=== PATIENT | female | born 1960 | race Caucasian/White ===

== ENCOUNTER 2025-02-28 15:08 | Emergency (ER) | payer OTHER, MEDICARE, MEDICAID ==
[~2025-02-28] VITALS: Ht 160 cm; Wt 127.0 kg
[2025-02-28] MEDS: KETOROLAC 30MG/ML VIAL IV ONE (16:12)
[2025-02-28] MEDS: HYDROCODONE/ACETAMINOPHEN 5/325MG TABLET PO ONE (16:13)
[2025-02-28] MEDS: PROPOFOL 200MG/20ML VIAL IV ONE (17:00)
[2025-02-28] MEDS: MORPHINE SULFATE 4 MG/ML INJ (FOR IV/IM USE) IV ONE ×2 (17:50→18:44)
[2025-02-28] MEDS: SODIUM CHLORIDE 0.9% 1,000 ML IV ONE (17:50)
[2025-02-28 17:54] VITALS: TEMP 37
[2025-02-28] MEDS: LIDOCAINE HCL 1% 20ML VIAL INFIL ONE (18:00)
[2025-02-28 19:09] VITALS: O2SAT 99
[2025-02-28] MEDS ORDERED: HYDROMORPHONE HCL/PF 2MG/ML INJ IV ONE (19:15)
[2025-02-28] MEDS ORDERED: IBUP-1455 MT (20:47)
[2025-02-28] MEDS ORDERED: HYDR-4001 MT (20:47)
[2025-02-28 22:08] VITALS: BP 154/36; PULSE 78; RESP 15; O2SAT 97
== END 2025-02-28 22:10 | disposition home or self-care (01) ==
LOC: ER 15:08
DX: S52.611A Displaced fracture of right ulna styloid process, initial encounter for closed fracture (principal); S52.591A Other fractures of lower end of right radius, initial encounter for closed fracture; V43.62XA Car passenger injured in collision with other type car in traffic accident, initial encounter; Y93.89 Activity, other specified; Y92.410 Unspecified street and highway as the place of occurrence of the external cause; Y99.8 Other external cause status
CPT/HCPCS: 25605; 71045; 73080; 73110; 73130; 96361; 96374; 96375; 96376; 99152; 99285; J1885; J2003; J2704; J1171; J2270; J7030; A6449; A4615